=== PATIENT | male | born 1955 | race Caucasian/White ===

== ENCOUNTER → 2016-12-07 | Outpatient (CLI) | payer BC ==
[2016-12-07 09:34] LABS: BASO % 0.3 %; BASO ABS # 0.01 K/uL (0-0.2); COMPLETE YES; EOS % 1.7 %; HEMATOCRIT 44.7 % (42-52); IG% 0.3 %; LYMPH % 39.2 %; LYMPH ABS # 1.36 K/uL (1.2-3.4); MEAN CELL VOLUME 87.8 fL (80-100); MEAN CORPUSCULAR HEMOGLOBIN 29.3 pg (25-34); MEAN CORPUSCULAR HGB CONC 33.3 g/dl (32-36); MEAN PLATELET VOLUME 9.2 fL (7.4-10.4); MONO % 10.7 %; NEUT % 47.8 %; PLATELET COUNT 203 K/uL (130-400); RED BLOOD COUNT 5.09 M/uL (4.7-6.1); WHITE BLOOD COUNT 3.47 K/uL (4.8-10.8)
[2016-12-07 09:57] LABS: ALT/SGPT 34 U/L (12-78); BLOOD UREA NITROGEN 16 mg/dl (7-18); BUN/CREATININE RATIO 16.5 (10-20); CARBON DIOXIDE 29 mmol/L (21-32); CHLORIDE 109 mmol/L (98-107); CHOLESTEROL 171 mg/dl (0-200); CREATININE 0.98 mg/dl (0.60-1.40); GLUCOSE 96 mg/dl (70-99); POTASSIUM 4.3 mmol/L (3.5-5.1); SODIUM 144 mmol/L (136-145); TRIGLYCERIDES 99 mg/dl (0-150); URIC ACID 5.6 mg/dl (2.6-7.2); VERY LOW DENSITY LIPOPROT CALC 20 mg/dl
[2016-12-07 10:11] LABS: ALB/GLOB RATIO 1.1 (0.9-2); ALKALINE PHOSPHATASE 53 U/L (45-117); AST/SGOT 18 U/L (15-37); CHOLESTEROL/HDL RATIO 4.1; HDL CHOLESTEROL 42 mg/dl; LDL CHOLESTEROL CALCULATED 109 mg/dl; PHOSPHORUS 3.5 mg/dl (2.5-4.9)
[2016-12-07 11:14] LABS: ESTIMATED AVERAGE GLUCOSE 114 mg/dl; HA1C FLAG Normal (Normal)
[2016-12-08 09:54] LABS: C-REACTIVE PROT HIGHSEN 0.5 MG/L
== END | disposition home or self-care (01) ==
LOC: C.LAB 07:08
PROVIDERS: ATTEND Family Medicine
DX: R73.09 Other abnormal glucose (principal); E55.9 Vitamin D deficiency, unspecified; D51.9 Vitamin B12 deficiency anemia, unspecified; N40.0 Benign prostatic hyperplasia without lower urinary tract symptoms

== ENCOUNTER → 2017-12-07 | Outpatient (CLI) | payer BC ==
[2017-12-07 09:32] LABS: BASO % 0.5 %; BASO ABS # 0.02 K/uL (0-0.2); EOS % 1.9 %; EOS ABS # 0.07 K/uL (0-0.5); HEMATOCRIT 46.2 % (42-52); HEMOGLOBIN 15.5 g/dL (14.0-18.0); IG# 0.01 K/uL (0.00-0.02); LYMPH % 39.6 %; LYMPH ABS # 1.48 K/uL (1.2-3.4); MEAN CELL VOLUME 87.7 fL (80-100); MEAN CORPUSCULAR HEMOGLOBIN 29.4 pg (25-34); MEAN CORPUSCULAR HGB CONC 33.5 g/dl (32-36); MEAN PLATELET VOLUME 8.6 fL (7.4-10.4); MONO % 11.8 %; MONO ABS # 0.44 K/uL (0.11-0.59); NEUT % 45.9 %; NEUT ABS # 1.72 K/uL (1.4-6.5); PLATELET COUNT 216 K/uL (130-400); RED CELL DISTRIBUTION WIDTH CV 13.6 % (11.5-14.5); RED CELL DISTRIBUTION WIDTH SD 43.1 fL (36.4-46.3); WHITE BLOOD COUNT 3.74 K/uL (4.8-10.8)
[2017-12-07 10:05] LABS: HEMOGLOBIN A1C 5.6 % (4.5-5.6)
[2017-12-07 10:08] LABS: ALBUMIN 3.7 gm/dl (3.4-5.0); ALT/SGPT 47 U/L (12-78); BLOOD UREA NITROGEN 15 mg/dl (7-18); CALCIUM 8.9 mg/dl (8.5-10.1); CARBON DIOXIDE 28 mmol/L (21-32); CHOLESTEROL 209 mg/dl (0-200); CREATININE 0.99 mg/dl (0.60-1.40); GLUCOSE 90 mg/dl (70-99); SODIUM 140 mmol/L (136-145); URIC ACID 7.4 mg/dl (2.6-7.2)
[2017-12-07 10:18] LABS: ALKALINE PHOSPHATASE 52 U/L (45-117); AST/SGOT 21 U/L (15-37); LDL CHOLESTEROL CALCULATED 132 mg/dl; TOTAL PROTEIN 6.9 gm/dl (6.4-8.2); TRANSFERRIN 219 mg/dl (200-360)
== END | disposition home or self-care (01) ==
LOC: C.LAB 07:02
PROVIDERS: ATTEND Family Medicine
DX: E88.81 Metabolic syndrome and other insulin resistance (principal); E55.9 Vitamin D deficiency, unspecified; D51.9 Vitamin B12 deficiency anemia, unspecified; E78.9 Disorder of lipoprotein metabolism, unspecified; R53.83 Other fatigue